=== PATIENT | male | born 1970 | race Caucasian/White ===

== ENCOUNTER → 2019-06-19 07:54 | Outpatient (CLI) | payer BC, SELFPAY | PROVIDERS: Family Provider Family Medicine; PCP Family Medicine; Referring Provider Physician Assistant; Visit Provider Physician Assistant | DX: R20.2 Paresthesia of skin (principal) ==

== ENCOUNTER 2021-05-10 08:04 | Day surgery (SDC) | payer BC, OTHER, SELFPAY ==
[2021-05-10] VITALS (7 sets, daily range): BP systolic 82–156; BP diastolic 61–79; PULSE 60–74; RESP 18; TEMP 36.5–37.3; O2SAT 92–97; BMI 52.7
[2021-05-10] MEDS: Lactated Ringers 1,000 ML 100 ML IV (08:50)
--- NOTE | 2021-05-10 09:23 | RAD_ITS ---
PROCEDURE: Caudal block. DATE OF EXAMINATION: 05/10/2021 INDICATION: Male, 50 years old. Low back pain. FLUOROSCOPY TIME (if supplied): (19 seconds) minutes/seconds. Single image was submitted. RAD/Fluor Guidance for Spine Inj IMPRESSION: Intraoperative imaging provided for caudal block. Electronically Signed: Brady Cordova MD at 11:56 EDT , Service support ,
[2021-05-10] MEDS: Bupivacaine 0.25% 30 ML Vial (09:29)
[2021-05-10] MEDS: Lidocaine 1% (5 ml sdv) 5 ML Vial (09:29)
[2021-05-10] MEDS: MethylPREDNISolone Acetate 80 MG/ML Vial (09:29)
[2021-05-10] MEDS: 0.9% Normal Saline (Pres. free 10 ML Vial (09:30)
--- NOTE | 2021-05-10 13:26 | OP.PCM_ITS ---
Report of Operation Date of Procedure: 05/10/21 Pre-Operative Diagnosis: Lumbosacral radiculopathy, lumbosacral degenerative di sc disease, lumbosacral spinal stenosis Post-Operative Diagnosis: Lumbosacral radiculopathy, lumbosacral degenerative disc disease, lumbosacral spinal stenosis Surgery/Procedure Performed:: Caudal epidural steroid injection under fluoroscopic guidance Type of Anesthesia: MAC Estimated Blood Loss (mL): Minimal Description of Procedure: DESCRIPTION OF PROCEDURE: History and physical of today was reviewed. Risks and benefits of the procedure were explained. The patient understood and agreed to proceed. Informed consent was obtained. IV inserted per routine protocol. The patient was taken to the operating room and placed in the prone position with a pillow positioned underneath the abdomen. The lower back and tailbone area was prepped and draped in a sterile fashion using iodine x3. Under fluoroscopy guidance on a lateral view, the caudal space was identified. The skin and subcutaneous tissue was anesthetized with approximately 3 mL of 1% lidocaine using a 25-gauge regular needle. Under direct visualization with fluoroscopy, using a 22-gauge 3-1/2-inch spinal needle, the needle was advanced via the skin through the sacral hiatus. The tip of the needle was passed through the sacrococcygeal ligament and advanced to approximately S4 area. After negative aspiration of blood or CSF, a total of 3 mL of contrast was injected to confirm correct placement of the needle as well as cephalad spread. The spread was followed to approximately L5 area. After confirmation on AP as well as lateral view and repeated negative aspiration, a total of 15 mL of preservative-free 0.125% Marcaine with 80 mg of Depo-Medrol was injected easily. The needle was then removed intact. The patient experienced no sign or symptoms of intrathecal or intravascular injection. The patient experienced no paresthesia. The procedure was completed without any apparent difficulty or any complications. The patient appeared to tolerate it well. ASSESSMENT AND PLAN: This is a 50-year-old male with lumbosacral radiculopathy, lumbosacral degenerative disc disease, lumbosacral spinal stenosis status post caudal epidural steroid injection, patient will continue his current medications, patient will follow in approximately 2 weeks for reevaluation. Complications None
== END 2021-05-10 10:23 | disposition home or self-care (01) ==
LOC: SDC 08:09 → AC 08:11
PROVIDERS: PCP Family Medicine; Referring Provider Anesthesiology Pain Medicine; Visit Provider Anesthesiology Pain Medicine
PROC: 3E0S3BZ Introduction of Anesthetic Agent into Epidural Space, Percutaneous Approach (ICD-10-PCS; CPT 62282; principal; 2021-05-10 09:25)
DX: M47.27 Other spondylosis with radiculopathy, lumbosacral region (principal); M51.17 Intervertebral disc disorders with radiculopathy, lumbosacral region; M48.07 Spinal stenosis, lumbosacral region; G47.33 Obstructive sleep apnea (adult) (pediatric); H91.90 Unspecified hearing loss, unspecified ear; G25.81 Restless legs syndrome; M19.90 Unspecified osteoarthritis, unspecified site; Z87.891 Personal history of nicotine dependence
CPT/HCPCS: 01992; 62323; 64483; 77003; J7120; J3490

== ENCOUNTER 2021-06-28 11:02 | Day surgery (SDC) | payer BC, OTHER, SELFPAY ==
[2021-06-28 12:00] VITALS: BP 100/70; PULSE 70; RESP 16; TEMP 36.9; O2SAT 99; BMI 53.3
[2021-06-28] MEDS: Lactated Ringers 1,000 ML 100 ML IV (12:24)
--- NOTE | 2021-06-28 12:39 | RAD_ITS ---
PROCEDURE: Caudal block. DATE OF EXAMINATION: 06/28/2021. INDICATION: Male, 50 years old. Chronic low back pain. FLUOROSCOPY TIME (if supplied): (19 seconds) minutes/seconds. Single image was obtained. Performed to confirm the patient''s identity, the type of procedure, to be performed and the site of entry. RAD/Fluor Guidance for Spine Inj IMPRESSION: Intraoperative imaging provided for caudal block. Electronically Signed: Brady Cordova MD at 14:04 EDT , Service support ,
[2021-06-28] MEDS: 0.9% Normal Saline (Pres. free 10 ML Vial (12:50)
[2021-06-28] MEDS: MethylPREDNISolone Acetate 80 MG/ML Vial (12:50)
[2021-06-28] MEDS: Bupivacaine 0.25% 30 ML Vial (12:50)
[2021-06-28] MEDS: Lidocaine 1% (5 ml sdv) 5 ML Vial (12:50)
[2021-06-28 13:00] VITALS: BP 100/70; BP 129/85; PULSE 69; RESP 16; TEMP 36.4; O2SAT 96
--- NOTE | 2021-06-28 13:00 | OP.PCM_ITS ---
Report of Operation Date of Procedure: 06/28/21 Pre-Operative Diagnosis: Lumbosacral radiculopathy, lumbosacral degenerative di sc disease, lumbosacral spinal stenosis Post-Operative Diagnosis: Lumbosacral radiculopathy, lumbosacral degenerative disc disease, lumbosacral spinal stenosis Surgery/Procedure Performed:: Caudal epidural steroid injection under fluoroscopic guidance Type of Anesthesia: MAC Estimated Blood Loss (mL): Minimal Description of Procedure: DESCRIPTION OF PROCEDURE: History and physical of today was reviewed. Risks and benefits of the procedure were explained. The patient understood and agreed to proceed. Informed consent was obtained. IV inserted per routine protocol. The patient was taken to the operating room and placed in the prone position with a pillow positioned underneath the abdomen. The lower back and tailbone area was prepped and draped in a sterile fashion using iodine x3. Under fluoroscopy guidance on a lateral view, the caudal space was identified. The skin and subcutaneous tissue was anesthetized with approximately 3 mL of 1% lidocaine using a 25-gauge regular needle. Under direct visualization with fluoroscopy, using a 22-gauge 3-1/2-inch spinal needle, the needle was advanced via the skin through the sacral hiatus. The tip of the needle was passed through the sacrococcygeal ligament and advanced to approximately S4 area. After negative aspiration of blood or CSF, a total of 3 mL of contrast was injected to confirm correct placement of the needle as well as cephalad spread. The spread was followed to approximately L5 area. After confirmation on AP as well as lateral view and repeated negative aspiration, a total of 15 mL of preservative-free 0.125% Marcaine with 80 mg of Depo-Medrol was injected easily. The needle was then removed intact. The patient experienced no sign or symptoms of intrathecal or intravascular injection. The patient experienced no paresthesia. The procedure was completed without any apparent difficulty or any complications. The patient appeared to tolerate it well. ASSESSMENT AND PLAN: This is a 50-year-old male with lumbosacral radiculopathy, lumbosacral degenerative disc disease, lumbosacral spinal stenosis status post caudal epidural steroid injection, patient will continue his current medications, patient will follow in approximately 2 weeks for reevaluation. Complications None
[2021-06-28 13:05] VITALS: BP 100/70; BP 125/81; PULSE 66; RESP 16; O2SAT 95
[2021-06-28 13:10] VITALS: BP 100/70; BP 135/69; PULSE 67; RESP 16; O2SAT 96
[2021-06-28 13:15] VITALS: BP 100/70; BP 118/74; PULSE 66; RESP 16; TEMP 36.4; O2SAT 98
[2021-06-28 13:38] VITALS: BP 100/70
== END 2021-06-28 13:51 | disposition home or self-care (01) ==
LOC: SDC 11:03 → AC 11:35
PROVIDERS: PCP Family Medicine; Referring Provider Anesthesiology Pain Medicine; Visit Provider Anesthesiology Pain Medicine
PROC: 3E0S3BZ Introduction of Anesthetic Agent into Epidural Space, Percutaneous Approach (ICD-10-PCS; CPT 62282; principal; 2021-06-28 12:35)
DX: M47.27 Other spondylosis with radiculopathy, lumbosacral region (principal); M51.17 Intervertebral disc disorders with radiculopathy, lumbosacral region; M48.061 Spinal stenosis, lumbar region without neurogenic claudication; M48.07 Spinal stenosis, lumbosacral region; G89.29 Other chronic pain; I10 Essential (primary) hypertension; M19.90 Unspecified osteoarthritis, unspecified site; G47.33 Obstructive sleep apnea (adult) (pediatric); H91.90 Unspecified hearing loss, unspecified ear; G25.81 Restless legs syndrome; G43.909 Migraine, unspecified, not intractable, without status migrainosus; Z79.899 Other long term (current) drug therapy; Z87.891 Personal history of nicotine dependence
CPT/HCPCS: 01992; 62323; 64483; 77003; J7120; J3490

== ENCOUNTER 2021-11-29 10:11 | Day surgery (SDC) | payer BC, SELFPAY ==
[2021-11-29 10:38] VITALS: BP 141/73; PULSE 62; RESP 16; TEMP 36.6; O2SAT 99; BMI 53.1
[2021-11-29] MEDS: Lactated Ringers 1,000 ML 15 ML IV (10:43)
[2021-11-29] MEDS: Lidocaine 1% (5 ml sdv) 5 ML Vial (11:27)
[2021-11-29] MEDS: MethylPREDNISolone Acetate 80 MG/ML Vial (11:27)
[2021-11-29] MEDS: Bupivacaine 0.25% 30 ML Vial (11:27)
[2021-11-29] MEDS: 0.9% Normal Saline (Pres. free 10 ML Vial (11:27)
[2021-11-29 11:40] VITALS: BP 132/79; BP 141/73; PULSE 66; RESP 16; TEMP 37.1; O2SAT 92
--- NOTE | 2021-11-29 11:40 | RAD_ITS ---
PROCEDURE: Caudal block. DATE OF EXAMINATION: 11/29/2021. INDICATION: Male, 51 years old. Chronic low back pain. FLUOROSCOPY TIME (if supplied): (10.4 seconds) minutes/seconds. One image was submitted. RAD/Fluor Guidance for Spine Inj IMPRESSION: Intraoperative imaging provided for caudal block. Electronically Signed: Brady Cordova MD at 13:58 EST ,
[2021-11-29 11:45] VITALS: BP 139/82; BP 141/73; PULSE 65; RESP 16; O2SAT 91
[2021-11-29 11:50] VITALS: BP 127/76; BP 141/73; PULSE 64; RESP 16; O2SAT 96
[2021-11-29 11:52] VITALS: BP 127/67; BP 141/73; PULSE 62; RESP 16; TEMP 36.8; O2SAT 94
[2021-11-29 12:13] VITALS: BP 141/73
--- NOTE | 2021-11-29 15:16 | OP.PCM_ITS ---
Report of Operation Date of Procedure: 11/29/21 Pre-Operative Diagnosis: Lumbosacral radiculopathy, lumbosacral degenerative di sc disease, lumbosacral spinal stenosis Post-Operative Diagnosis: Lumbosacral radiculopathy, lumbosacral degenerative disc disease, lumbosacral spinal stenosis Surgery/Procedure Performed:: Caudal epidural steroid injection under fluoroscopic guidance Type of Anesthesia: MAC Estimated Blood Loss (mL): Minimal Description of Procedure: DESCRIPTION OF PROCEDURE: History and physical of today was reviewed. Risks and benefits of the procedure were explained. The patient understood and agreed to proceed. Informed consent was obtained. IV inserted per routine protocol. The patient was taken to the operating room and placed in the prone position with a pillow positioned underneath the abdomen. The lower back and tailbone area was prepped and draped in a sterile fashion using iodine x3. Under fluoroscopy guidance on a lateral view, the caudal space was identified. The skin and subcutaneous tissue was anesthetized with approximately 3 mL of 1% lidocaine using a 25-gauge regular needle. Under direct visualization with fluoroscopy, using a 22-gauge 3-1/2-inch spinal needle, the needle was advanced via the skin through the sacral hiatus. The tip of the needle was passed through the sacrococcygeal ligament and advanced to approximately S4 area. After negative aspiration of blood or CSF, a total of 3 mL of contrast was injected to confirm correct placement of the needle as well as cephalad spread. The spread was followed to approximately L5 area. After confirmation on AP as well as lateral view and repeated negative aspiration, a total of 15 mL of preservative-free 0.125% Marcaine with 80 mg of Depo-Medrol was injected easily. The needle was then removed intact. The patient experienced no sign or symptoms of intrathecal or intravascular injection. The patient experienced no paresthesia. The procedure was completed without any apparent difficulty or any complications. The patient appeared to tolerate it well. ASSESSMENT AND PLAN: This is a 51-year-old male with lumbosacral radiculopathy, lumbosacral degenerative disc disease, lumbosacral spinal stenosis status post caudal epidural steroid injection, patient will continue his current medications, patient will follow in approximately 2 weeks for reevaluation. Complications None
== END 2021-11-29 23:59 | disposition home or self-care (01) ==
LOC: SDC 10:15 → AC 10:16
PROVIDERS: PCP Family Medicine; Referring Provider Anesthesiology Pain Medicine; Visit Provider Anesthesiology Pain Medicine
PROC: 3E0S3BZ Introduction of Anesthetic Agent into Epidural Space, Percutaneous Approach (ICD-10-PCS; CPT 62282; principal; 2021-11-29 11:35)
DX: M47.27 Other spondylosis with radiculopathy, lumbosacral region (principal); Z68.43 Body mass index [BMI] 50.0-59.9, adult; M51.17 Intervertebral disc disorders with radiculopathy, lumbosacral region; M48.07 Spinal stenosis, lumbosacral region; Z86.16 Personal history of COVID-19; M19.90 Unspecified osteoarthritis, unspecified site; G47.33 Obstructive sleep apnea (adult) (pediatric); Z87.891 Personal history of nicotine dependence; I10 Essential (primary) hypertension; I25.2 Old myocardial infarction; G25.81 Restless legs syndrome; Z79.899 Other long term (current) drug therapy; G43.909 Migraine, unspecified, not intractable, without status migrainosus; E66.9 Obesity, unspecified
CPT/HCPCS: 62323; 01992; 64483; 77003; J7120; J3490

== ENCOUNTER 2022-05-09 08:40 | Day surgery (SDC) | payer BC, SELFPAY ==
[2022-05-09] VITALS (7 sets, daily range): BP systolic 109–151; BP diastolic 55–96; PULSE 58–69; RESP 16; TEMP 36.6–36.9; O2SAT 96–99; BMI 53.6
[2022-05-09] MEDS: Lactated Ringers 1,000 ML 15 ML IV (09:44)
--- NOTE | 2022-05-09 10:33 | RAD_ITS ---
PROCEDURE: Fluoroscopy guided caudal block. DATE OF EXAMINATION: 05/09/2022 INDICATION: Male, 51 years old presenting with low back pain. EXAMINATION/TECHNIQUE: IR Fluoro Guide Injection Spine COMPARISON: None. FLUOROSCOPY TIME: 0:05 minutes/seconds. FINDINGS: 2 spot fluoroscopic images were obtained intraoperatively. Lateral fluoroscopic images of the sacrum and coccyx were obtained, images demonstrate needle within the caudal space with contrast injection. No radiologist was present for the procedure, please refer to operative report for details. RAD/Fluor Guidance for Spine Inj IMPRESSION: Please refer to operative report for details. Electronically Signed: Dwayne Christina MD at 13:50 EDT ,
[2022-05-09] MEDS: MethylPREDNISolone Acetate 80 MG/ML Vial (10:35)
[2022-05-09] MEDS: Lidocaine 1% (5 ml sdv) 5 ML Vial (10:35)
[2022-05-09] MEDS: 0.9% Normal Saline (Pres. free 10 ML Vial (10:35)
[2022-05-09] MEDS: Bupivacaine 0.25% 30 ML Vial (10:35)
--- NOTE | 2022-05-09 11:04 | OP.PCM_ITS ---
Report of Operation Date of Procedure: 05/09/22 Pre-Operative Diagnosis: Lumbosacral radiculopathy, lumbosacral degenerative di sc disease, lumbosacral spinal stenosis Post-Operative Diagnosis: Lumbosacral radiculopathy, lumbosacral degenerative disc disease, lumbosacral spinal stenosis Surgery/Procedure Performed:: Caudal epidural steroid injection under fluoroscopic guidance Type of Anesthesia: MAC Estimated Blood Loss (mL): Minimal Description of Procedure: DESCRIPTION OF PROCEDURE: History and physical of today was reviewed. Risks and benefits of the procedure were explained. The patient understood and agreed to proceed. Informed consent was obtained. IV inserted per routine protocol. The patient was taken to the operating room and placed in the prone position with a pillow positioned underneath the abdomen. The lower back and tailbone area was prepped and draped in a sterile fashion using iodine x3. Under fluoroscopy guidance on a lateral view, the caudal space was identified. The skin and subcutaneous tissue was anesthetized with approximately 3 mL of 1% lidocaine using a 25-gauge regular needle. Under direct visualization with fluoroscopy, using a 22-gauge 3-1/2-inch spinal needle, the needle was advanced via the skin through the sacral hiatus. The tip of the needle was passed through the sacrococcygeal ligament and advanced to approximately S4 area. After negative aspiration of blood or CSF, a total of 3 mL of contrast was injected to confirm correct placement of the needle as well as cephalad spread. The spread was followed to approximately L5 area. After confirmation on AP as well as lateral view and repeated negative aspiration, a total of 15 mL of preservative-free 0.125% Marcaine with 80 mg of Depo-Medrol was injected easily. The needle was then removed intact. The patient experienced no sign or symptoms of intrathecal or intravascular injection. The patient experienced no paresthesia. The procedure was completed without any apparent difficulty or any complications. The patient appeared to tolerate it well. ASSESSMENT AND PLAN: This is a 51-year-old male with lumbosacral radiculopathy, lumbosacral degenerative disc disease, lumbosacral spinal stenosis status post caudal epidural steroid injection, patient will continue his current medications, patient will follow in approximately 2 weeks for reevaluation. Complications None
== END 2022-05-09 11:28 | disposition home or self-care (01) ==
LOC: SDC 08:43 → AC 08:51
PROVIDERS: PCP Family Medicine; Referring Provider Anesthesiology Pain Medicine; Visit Provider Anesthesiology Pain Medicine
PROC: 3E0S3BZ Introduction of Anesthetic Agent into Epidural Space, Percutaneous Approach (ICD-10-PCS; CPT 62282; principal; 2022-05-09 10:15)
DX: M51.17 Intervertebral disc disorders with radiculopathy, lumbosacral region (principal); M48.07 Spinal stenosis, lumbosacral region; I10 Essential (primary) hypertension; G25.81 Restless legs syndrome; G47.33 Obstructive sleep apnea (adult) (pediatric); Z79.899 Other long term (current) drug therapy; M19.90 Unspecified osteoarthritis, unspecified site
CPT/HCPCS: 62323; 64483; 77003; J7120; J3490

== ENCOUNTER 2022-12-26 09:57 | Day surgery (SDC) | payer OTHER, SELFPAY ==
[2022-12-26 10:25] VITALS: BP 137/79; PULSE 65; RESP 18; TEMP 36.7; O2SAT 99; BMI 53.1
[2022-12-26] MEDS: Lactated Ringers 1,000 ML 15 ML IV (10:50)
--- NOTE | 2022-12-26 10:50 | RAD_ITS ---
PROCEDURE: Caudal block. DATE OF EXAMINATION: December 26, 2022. INDICATION: Male, 52 years old. Low back pain. FLUOROSCOPY TIME (if supplied): (15.7 seconds) minutes/seconds. 2 images were submitted. RADIATION DOSAGE (If Supplied By Facility): ( 11.46 ) mGycm RAD/Fluor Guidance for Spine Inj IMPRESSION: Intraoperative imaging provided for caudal block. Electronically Signed: Brady Cordova MD at 13:41 EDT ,
[2022-12-26] MEDS: Bupivacaine 0.25% 30 ML Vial (11:25)
[2022-12-26] MEDS: Lidocaine 1% (5 ml sdv) 5 ML Vial (11:25)
[2022-12-26] MEDS: MethylPREDNISolone Acetate 80 MG/ML Vial (11:25)
[2022-12-26] MEDS: 0.9% Normal Saline (Pres. free 10 ML Vial (11:25)
[2022-12-26 11:34] VITALS: BP 137/79; BP 148/86; PULSE 65; RESP 20; TEMP 36.7; O2SAT 95
[2022-12-26 11:40] VITALS: BP 137/79; BP 148/86; PULSE 60; RESP 20; O2SAT 95
[2022-12-26 11:45] VITALS: BP 137/79; BP 86/56; PULSE 61; RESP 20; O2SAT 96
--- NOTE | 2022-12-26 11:47 | OP.PCM_ITS ---
Report of Operation Date of Procedure: 12/26/22 Pre-Operative Diagnosis: Lumbosacral radiculopathy, lumbosacral degenerative di sc disease, lumbosacral spinal stenosis Post-Operative Diagnosis: Lumbosacral radiculopathy, lumbosacral degenerative disc disease, lumbosacral spinal stenosis Surgery/Procedure Performed:: Caudal epidural steroid injection under fluoroscopic guidance Type of Anesthesia: MAC Estimated Blood Loss (mL): Minimal Description of Procedure: DESCRIPTION OF PROCEDURE: History and physical of today was reviewed. Risks and benefits of the procedure were explained. The patient understood and agreed to proceed. Informed consent was obtained. IV inserted per routine protocol. The patient was taken to the operating room and placed in the prone position with a pillow positioned underneath the abdomen. The lower back and tailbone area was prepped and draped in a sterile fashion using iodine x3. Under fluoroscopy guidance on a lateral view, the caudal space was identified. The skin and subcutaneous tissue was anesthetized with approximately 3 mL of 1% lidocaine using a 25-gauge regular needle. Under direct visualization with fluoroscopy, using a 22-gauge 3-1/2-inch spinal needle, the needle was advanced via the skin through the sacral hiatus. The tip of the needle was passed through the sacrococcygeal ligament and advanced to approximately S4 area. After negative aspiration of blood or CSF, a total of 3 mL of contrast was injected to confirm correct placement of the needle as well as cephalad spread. The spread was followed to approximately L5 area. After confirmation on AP as well as lateral view and repeated negative aspiration, a total of 15 mL of preservative-free 0.125% Marcaine with 80 mg of Depo-Medrol was injected easily. The needle was then removed intact. The patient experienced no sign or symptoms of intrathecal or intravascular injection. The patient experienced no paresthesia. The procedure was completed without any apparent difficulty or any complications. The patient appeared to tolerate it well. ASSESSMENT AND PLAN: This is a 52-year-old male with lumbosacral radiculopathy, lumbosacral degenerative disc disease, lumbosacral spinal stenosis status post caudal epidural steroid injection, patient will continue his current medications, patient will follow in approximately 2 weeks for reevaluation. Complications None
[2022-12-26 11:51] VITALS: BP 106/69; BP 137/79; PULSE 63; RESP 18; TEMP 36.9; O2SAT 96
[2022-12-26 12:04] VITALS: BP 137/79
== END 2022-12-26 12:29 | disposition home or self-care (01) ==
LOC: SDC 09:58 → AC 10:00
PROVIDERS: PCP Family Medicine; Visit Provider Anesthesiology Pain Medicine
PROC: 3E0S3BZ Introduction of Anesthetic Agent into Epidural Space, Percutaneous Approach (ICD-10-PCS; CPT 62282; principal; 2022-12-26 11:45)
DX: M48.07 Spinal stenosis, lumbosacral region (principal); M51.17 Intervertebral disc disorders with radiculopathy, lumbosacral region; I10 Essential (primary) hypertension; Z87.891 Personal history of nicotine dependence
CPT/HCPCS: 62323; 64483; 77003; J7120; J3490

== ENCOUNTER 2023-03-13 07:46 | Day surgery (SDC) | payer OTHER, SELFPAY ==
[2023-03-13] MEDS: Lactated Ringers 1,000 ML 15 ML IV (07:55)
[2023-03-13 08:03] VITALS: BP 146/75; PULSE 67; RESP 16; TEMP 37.1; O2SAT 98; BMI 54.3
--- NOTE | 2023-03-13 08:44 | RAD_ITS ---
PROCEDURE: The left L5-S1 transforaminal epidural injection. DATE OF EXAMINATION: March 13, 2023. INDICATION: Male, 52 years old. Low back pain. FLUOROSCOPY TIME (if supplied): (17 seconds) minutes/seconds. 3 images were submitted. 08.13 mGy RAD/Lumbar Spine 2 or 3 Views IMPRESSION: Intraoperative imaging provided for left L5-S1 transforaminal epidural injection. Electronically Signed: Brady Cordova MD at 14:48 EDT ,
--- NOTE | 2023-03-13 08:44 | PCM.OPRPT ---
Report of Operation Date of Procedure: 03/13/23 Description of Surgical Findings:: PREOPERATIVE DIAGNOSES: 1. Lumbosacral radiculopathy. 2. Lumbosacral degenerative disk disease. 3. Lumbosacral spinal stenosis. POSTOPERATIVE DIAGNOSES: 1. Lumbosacral radiculopathy. 2. Lumbosacral degenerative disk disease. 3. Lumbosacral spinal stenosis. PROCEDURE PERFORMED: left-sided lumbar transforaminal epidural steroid injection, L4-5, L5-S1. ANESTHESIA: MAC. BLOOD LOSS: Minimal. COMPLICATIONS: None. DESCRIPTION OF PROCEDURE: History and physical of today was reviewed. Risks and benefits of the procedure were explained. The patient understood and agreed to proceed. Informed consent was obtained. IV inserted per routine protocol. The patient was taken to the operating room and placed in the prone position with a pillow positioned underneath the abdomen. The left side of his lower back was prepped and draped in a sterile fashion using iodine x3. Under fluoroscopy guidance on oblique view, the L4 through S1 vertebral bodies were visualized. The skin and subcutaneous tissue was anesthetized with approximately 5 mL of 1% lidocaine using a 25-gauge regular needle. Under direct visualization with fluoroscopy at approximately 35-degree angle, starting on the left L4, ending on the left L5, using a 22-gauge 5-inch spinal needle, the needle was advanced via the skin. The tip of the needle was maneuvered and directed towards the inferior and medial gutter of the transverse process at the superiormost aspect of the neural foramen. Once the tip of the needle was at the vicinity of the foramen, after negative aspiration for blood or CSF, a total of 1 mL of contrast was injected in divided doses between both levels to confirm correct placement of the needle as well as medial spread. The confirmation was obtained on AP as well as lateral view. After repeated negative aspiration and confirmation on AP as well as lateral view, a total of 6 mL of preservative-free 0.25% Marcaine with 80 mg of Depo-Medrol was injected in divided doses between both levels. The needles were then removed intact. The patient experienced no sign or symptoms of intrathecal or intravascular injection. The patient experienced no paresthesia. The procedure was completed without any apparent difficulty or any complications. The patient appeared to tolerate it well. ASSESSMENT AND PLAN: This is a 52-year-old male with lumbosacral radiculopathy, lumbosacral degenerative disk disease, and lumbosacral spinal stenosis, status post left-sided lumbar transforaminal epidural steroid injection at L4-5, L5-S1. The patient will continue his current medications. The patient will follow up in approximately 2 weeks for reevaluation.
[2023-03-13] MEDS: Lidocaine 1% (5 ml sdv) 5 ML Vial (08:52)
[2023-03-13] MEDS: MethylPREDNISolone Acetate 80 MG/ML Vial (08:52)
[2023-03-13 09:02] VITALS: BP 146/71; BP 146/75; PULSE 64; RESP 16; TEMP 37.4; O2SAT 94
[2023-03-13 09:05] VITALS: BP 146/67; BP 146/75; PULSE 65; RESP 16; O2SAT 95
[2023-03-13 09:10] VITALS: BP 140/70; BP 146/75; PULSE 64; RESP 16; O2SAT 94
[2023-03-13 09:15] VITALS: BP 141/74; BP 146/75; PULSE 63; RESP 16; O2SAT 92
[2023-03-13 09:18] VITALS: BP 113/87; BP 146/75; PULSE 65; RESP 16; TEMP 37.1; O2SAT 94
== END 2023-03-13 10:01 | disposition home or self-care (01) ==
LOC: SDC 07:47 → AC 07:48
PROVIDERS: PCP Family Medicine; Referring Provider Anesthesiology Pain Medicine; Visit Provider Anesthesiology Pain Medicine
PROC: 3E0S3BZ Introduction of Anesthetic Agent into Epidural Space, Percutaneous Approach (ICD-10-PCS; CPT 64484; principal; 2023-03-13 09:15)
DX: M48.07 Spinal stenosis, lumbosacral region (principal); M51.17 Intervertebral disc disorders with radiculopathy, lumbosacral region; I10 Essential (primary) hypertension; G47.33 Obstructive sleep apnea (adult) (pediatric); Z87.891 Personal history of nicotine dependence; Z99.89 Dependence on other enabling machines and devices
CPT/HCPCS: 64484; 64483; 72100; J7120

== ENCOUNTER 2023-12-11 08:41 | Day surgery (SDC) | payer OTHER, SELFPAY ==
[2023-12-11 09:02] VITALS: BP 151/78; PULSE 68; RESP 20; TEMP 36.4; O2SAT 97; BMI 52.2
--- NOTE | 2023-12-11 09:10 | RAD_ITS ---
INDICATION: TRANSFORAMINAL EPIDURAL INJECTION L3,L4,L5, LEFT EXAMINATION/TECHNIQUE: X-RAY - XR Spine Lumbar 2 or 3 Views COMPARISON: No relevant prior comparison study available FINDINGS: 2 views of the lower lumbar spine were obtained on a C-arm for epidural injection. The exam was performed for documentation and not for diagnostic purposes. The radiation dose is 10.87 mGy The fluoroscopy time was 16 seconds. RAD/Lumbar Spine 2 or 3 Views IMPRESSION: Intraprocedural exam as described above. Electronically Signed: Flakito Anna MD at 15:18 EST ,
[2023-12-11] MEDS: Lactated Ringers 1,000 ML 15 ML IV (09:13)
[2023-12-11] MEDS: MethylPREDNISolone Acetate 80 MG/ML Vial (09:50)
[2023-12-11] MEDS: Lidocaine 1% (5 ml sdv) 5 ML Vial (09:50)
--- NOTE | 2023-12-11 09:58 | OP.PCM_ITS ---
Report of Operation Date of Procedure: 12/11/23 Description of Surgical Findings:: PREOPERATIVE DIAGNOSES: 1. Lumbosacral radiculopathy. 2. Lumbosacral degenerative disk disease. 3. Lumbosacral spinal stenosis. POSTOPERATIVE DIAGNOSES: 1. Lumbosacral radiculopathy. 2. Lumbosacral degenerative disk disease. 3. Lumbosacral spinal stenosis. PROCEDURE PERFORMED: Left-sided lumbar transforaminal epidural steroid injection, L3-4 and L4-5. ANESTHESIA: MAC. BLOOD LOSS: Minimal. COMPLICATIONS: None. DESCRIPTION OF PROCEDURE: History and physical of today was reviewed. Risks and benefits of the procedure were explained. The patient understood and agreed to proceed. Informed consent was obtained. IV inserted per routine protocol. The patient was taken to the operating room and placed in the prone position with a pillow positioned underneath the abdomen. The left side of his lower back was prepped and draped in a sterile fashion using iodine x3. Under fluoroscopy guidance on oblique view, the L3 through L5 vertebral bodies were visualized. The skin and subcutaneous tissue was anesthetized with approximately 5 mL of 1% lidocaine using a 25-gauge regular needle. Under direct visualization with fluoroscopy at approximately 35-degree angle, starting on the left L3, ending on the left L4, using a 22-gauge 5-inch spinal needle, the needle was advanced via the skin. The tip of the needle was maneuvered and directed towards the inferior and medial gutter of the transverse process at the superiormost aspect of the neural foramen. Once the tip of the needle was at the vicinity of the foramen, after negative aspiration for blood or CSF, a total of 1 mL of contrast was injected in divided doses between both levels to confirm correct placement of the needle as well as medial spread. The confirmation was obtained on AP as well as lateral view. After repeated negative aspiration and confirmation on AP as well as lateral view, a total of 6 mL of preservative-free 0.25% Marcaine with 80 mg of Depo-Medrol was injected in divided doses between both levels. The needles were then removed intact. The patient experienced no sign or symptoms of intrathecal or intravascular injection. The patient experienced no paresthesia. The procedure was completed without any apparent difficulty or any complications. The patient appeared to tolerate it well. ASSESSMENT AND PLAN: This is a 53-year-old male with lumbosacral radiculopathy, lumbosacral degenerative disk disease, and lumbosacral spinal stenosis, status post left-sided lumbar transforaminal epidural steroid injection at L3-4 and L4- 5. The patient will continue his current medications. The patient will follow up in approximately 2 weeks for reevaluation.
[2023-12-11 10:00] VITALS: BP 128/76; BP 151/78; PULSE 62; RESP 16; TEMP 36.3; O2SAT 94
[2023-12-11 10:05] VITALS: BP 128/77; BP 151/78; PULSE 62; RESP 16; O2SAT 95
[2023-12-11 10:10] VITALS: BP 118/77; BP 151/78; PULSE 61; RESP 16; O2SAT 95
[2023-12-11 10:16] VITALS: BP 107/63; BP 151/78; PULSE 62; RESP 16; TEMP 36.4; O2SAT 95
[2023-12-11 10:29] VITALS: BP 151/78
== END 2023-12-11 10:52 | disposition home or self-care (01) ==
LOC: SDC 08:43 → AC 08:46
PROVIDERS: PCP Family Medicine; Visit Provider Anesthesiology Pain Medicine
PROC: 3E0S3BZ Introduction of Anesthetic Agent into Epidural Space, Percutaneous Approach (ICD-10-PCS; principal; 2023-12-11 10:05)
DX: M48.07 Spinal stenosis, lumbosacral region (principal); M51.17 Intervertebral disc disorders with radiculopathy, lumbosacral region; I10 Essential (primary) hypertension; Z87.891 Personal history of nicotine dependence
CPT/HCPCS: 64483; 72100; J7120

== ENCOUNTER 2024-05-13 07:38 | Day surgery (SDC) | payer BC, SELFPAY ==
[2024-05-13] VITALS (8 sets, daily range): BP systolic 124–148; BP diastolic 75–92; PULSE 62–69; RESP 16–18; TEMP 36.3–37.3; O2SAT 94–100; BMI 54.6
[2024-05-13] MEDS: Lactated Ringers 1,000 ML 15 ML IV (08:14)
--- NOTE | 2024-05-13 08:25 | RAD_ITS ---
PROCEDURE: Caudal block. DATE OF EXAMINATION: May 13, 2024. INDICATION: Male, 53 years old. Low back pain. FLUOROSCOPY TIME (if supplied): (9 seconds) minutes/seconds. 14.75 mGy. 2 images were submitted. RAD/Fluor Guidance for Spine Inj IMPRESSION: Intraoperative imaging provided for caudal block. Electronically Signed: Brady Cordova MD at 15:33 EDT ,
--- NOTE | 2024-05-13 08:35 | PRE.ANES_ITS ---
ASA Classification* ASA Classification ASA Classification: 3 Assessment & Plan Anesthesia* Anesthesia Assessment Anesthesia Assessment: Discussed sedation and/or anesthesia options, risks, benefits, and alternatives with patient/parents/legal guardian/POA. Questions invited. The patient/parents/legal guardian/POA seems to understand and agrees to proceed with anesthesia plan. Reviewed the physical assessment, medical history, allergy history and patient home medications list prior to surgery/procedure/anesthetic and documented any changes. Performed airway and anesthesia risk assessments. 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 When Was Last Pacemaker Check QUESTION #4 FULL TEXT: You/Your Family Experience fever (hyperthermia) with Anesthesia Last Oral Intake Last Oral intake: Last Oral Intake NPO since 20:00 05/13/24 08:15 Meds taken in AM with sips of No 05/13/24 08:15 water? Meds patient instructed to take am of surgery PONV PONV - photographic machine operator: PONV - photographic machine operator Female HX of Motion Sickness HX of N/V After Surgery Non-Smoker Duration of Surgery greater than 60 minutes Number of Risk Factors PONV Score Height & Weight Height & Weight: Anesthesia: Height & Weight Height 5 ft 8 in 05/13/24 08:15 Weight: 162.8 kg 05/13/24 08:15 Body Mass Index (BMI) 54.6 05/13/24 08:15 Respiratory Assessment Respiratory Assessment - photographic machine operator: Respiratory Tract Infection Hx - photographic machine operator Hx Respiratory Tract Infection No 05/04/22 08:27 STOP Sleep Apnea STOP Sleep Apnea - photographic machine operator: STOP Sleep Apnea - photographic machine operator Hx Hypertension Yes: controlled with med 05/04/22 08:27 Hx Sleep Apnea Yes 12/11/23 10:16 CPAP Yes 12/11/23 10:00 BIPAP No 05/04/22 08:27 Do you snore loudly (louder than talking or can be heard Do you often feel tired/ fatigued/ sleepy during daytime? Has anyone observed you stop breathing during sleep? STOP Results QUESTION #5 FULL TEXT : Do you snore loudly (louder than talking or can be heard through closed doors)? Tobacco Use History Tobacco Use History - photographic machine operator: Tobacco Use History - photographic machine operator Tobacco Use Smoking Status Former smoker 05/04/22 08:27 Hx Tobacco Use No 05/04/22 08:27 Years Smoking Packs Smoked per Day Smoking Cessation Date was within the last 15 years Hx Smoking Cessation Date 10/09/16 05/04/22 08:27 Hx Smoking Cessation No 05/04/22 08:27 Counseling Hematologic Medial History Hematologic Hx - photographic machine operator: Hematologic Medical Hx - rn documentation Hx of Blood Transfusion Hx of Transfusion in last 3 Months Date of Last Transfusion (if within last 3 months) Ever experience any problems with transfusion(s)? Specify any problems Hx of Preganancy in last 3 Months Nurse Filling Out Transfusion & Questions: Date: Time: Patient unable to answer at this time (ie. confused, unrespo /Reproduction History /Reproductive History - photographic machine operator: /Reproductive Hx- photographic machine operator Hx Now Gestational Age (in weeks): EDC: Hx Hx Para Hx Section SAB No 05/04/22 08:27 Active Medications Active Medications: Current Medications Generic Name Dose Route Start Last Admin Trade Name Freq PRN Reason Stop Dose Admin Lactated Ringer's 1,000 mls @ 15 mls/hr 05/13/24 08:00 05/13/24 08:14 IV 15 mls/hr .Q48H СВЕТЛАНА Administration PFSH Medical History Loss of hearing Alcohol use Arthritis Restless legs Back pain Migraine headache Former smoker CPAP (continuous positive airway pressure) dependence Leg cramps History of pain when walking History of edema Hypertension Home Medications ?Medication ?Instructions ?Recorded ?Last Taken ?Type acetaminophen 325 mg tablet 650 mg PO Q4H PRN Pain 05/04/21 12/10/23 History (Tylenol) vit 1 tab PO DAILY 05/04/21 12/10/23 History [id number]-[id number]-[id number] 500 mg-50 mg-25 mg-40 mg tablet (Bioflex) diclofenac sodium 75 mg 75 mg PO BID 06/28/21 12/10/23 History tablet,delayed release furosemide 20 mg tablet 20 mg PO DAILY 06/28/21 12/10/23 History gabapentin 300 mg tablet 300 mg PO .qid 06/28/21 12/10/23 History lisinopril 10 mg tablet 10 mg PO DAILY 06/28/21 12/10/23 History Allergy/AdvReac Type Severity Reaction Status Date / Time mushroom Allergy Swelling Verified 05/13/24 08:11 Penicillins Allergy Swelling Verified 05/13/24 08:11 Surgical History Hx of surgical procedure Hx of hemorrhoidectomy Social History Smoking Status: Former smoker Review of Systems (Anesthesia) ROS Narrative System reviewed and no additional complaints, except as documented.
--- NOTE | 2024-05-13 09:24 | OP.PCM_ITS ---
Report of Operation Date of Procedure: 05/13/24 Pre-Operative Diagnosis: Lumbosacral radiculopathy, lumbosacral degenerative di sc disease, lumbosacral spinal stenosis Post-Operative Diagnosis: Lumbosacral radiculopathy, lumbosacral degenerative disc disease, lumbosacral spinal stenosis Surgery/Procedure Performed:: Diagnostic/therapeutic caudal epidural steroid injection under fluoroscopic guidance Type of Anesthesia: MAC Estimated Blood Loss (mL): Minimal Description of Procedure: DESCRIPTION OF PROCEDURE: History and physical of today was reviewed. Risks and benefits of the procedure were explained. The patient understood and agreed to proceed. Informed consent was obtained. IV inserted per routine protocol. The patient was taken to the operating room and placed in the prone position with a pillow positioned underneath the abdomen. The lower back and tailbone area was prepped and draped in a sterile fashion using iodine x3. Under fluoroscopy guidance on a lateral view, the caudal space was identified. The skin and subcutaneous tissue was anesthetized with approximately 3 mL of 1% lidocaine using a 25-gauge regular needle. Under direct visualization with fluoroscopy, using a 22-gauge 3-1/2-inch spinal needle, the needle was advanced via the skin through the sacral hiatus. The tip of the needle was passed through the sacrococcygeal ligament and advanced to approximately S4 area. After negative aspiration of blood or CSF, a total of 3 mL of contrast was injected to confirm correct placement of the needle as well as cephalad spread. The spread was followed to approximately L5 area. After confirmation on AP as well as lateral view and repeated negative aspiration, a total of 15 mL of preservative-free 0.125% Marcaine with 80 mg of Depo-Medrol was injected easily. The needle was then removed intact. The patient experienced no sign or symptoms of intrathecal or intravascular injection. The patient experienced no paresthesia. The procedure was completed without any apparent difficulty or any complications. The patient appeared to tolerate it well. ASSESSMENT AND PLAN: This is a 53-year-old male with lumbosacral radiculopathy, lumbosacral degenerative disc disease, lumbosacral spinal stenosis status post diagnostic/therapeutic caudal epidural steroid injection, patient will continue his current medications, patient will follow in approximately 2 weeks for reevaluation. Complications None
--- NOTE | 2024-05-13 09:27 | PCM.POST.ANE ---
Anesthesia: Postop Eval I Current Vital Signs Temperature: 97.3 F Pulse Rate: 66 Blood Pressure: 135/79 Respiratory Rate: 16 Pulse Ox: 100 Oxygen Delivery Method: Room Air Assessment Airway patent: Yes Spontaneous unlabored respirations: Yes Mental status: Awake and Calm nausea: No Vomiting: No Anesthesia Complication: No Fluid Hydration Crystalloid volume administer (ml): 200 Total IV fluid infused: 200 Progress Note Anesthesia document: Postop Eval 1 completed: Yes
--- NOTE | 2024-05-13 09:39 | POSTOPAN2_ITS ---
Anesthesia Postop Eval I Sum Postop Eval Completion status Anesthesia document: Postop Eval 1 completed: Yes Anesthesia Postop Eval I Summary Anesthesia Postop Eval I Summary: Anesthesia Postop Eval I: Assessment Summary Airway patent Yes 05/13/24 09:29 CALENDER ROLL PRESS OPERATOR.TRENTOBFazal Spontaneous unlabored Yes 05/13/24 09:29 CALENDER ROLL PRESS OPERATOR.CAESAR respirations Mental status Awake,Calm 05/13/24 09:29 CALENDER ROLL PRESS OPERATOR.CAESAR nausea No 05/13/24 09:29 CALENDER ROLL PRESS OPERATOR.CAESAR Vomiting No 05/13/24 09:29 CALENDER ROLL PRESS OPERATOR.CAESAR Anesthesia Postop Eval I: Fluid Summary Crystalloid volume administer 200 05/13/24 09:29 CALENDER ROLL PRESS OPERATOR.TRENTOBY (ml) Colloids volume administered ( ml) Blood Product volume administered (ml) Total IV fluid infused 200 05/13/24 09:29 CALENDER ROLL PRESS OPERATOR.CAESAR Anesthesia Postop Eval I: Summary Notes Anesthesia Complication No 05/13/24 09:29 CALENDER ROLL PRESS OPERATOR.CAESAR Anesthesia Complication Comment: Post-operative progress note Anesthesia: Postop Eval II Evaluation Mental status: Awake Pain Level: 0 nausea: No Vomiting: No
--- NOTE | 2024-05-13 09:39 | PCM.POSTANE2 ---
Anesthesia Postop Eval I Sum Postop Eval Completion status Anesthesia document: Postop Eval 1 completed: Yes Anesthesia Postop Eval I Summary Anesthesia Postop Eval I Summary: Anesthesia Postop Eval I: Assessment Summary Airway patent Yes 05/13/24 09:29 INFORMATION SYSTEMS SECURITY DEVELOPER.TRENTOBFazal Spontaneous unlabored Yes 05/13/24 09:29 INFORMATION SYSTEMS SECURITY DEVELOPER.CAESAR respirations Mental status Awake,Calm 05/13/24 09:29 INFORMATION SYSTEMS SECURITY DEVELOPER.CAESAR nausea No 05/13/24 09:29 INFORMATION SYSTEMS SECURITY DEVELOPER.CAESAR Vomiting No 05/13/24 09:29 INFORMATION SYSTEMS SECURITY DEVELOPER.CAESAR Anesthesia Postop Eval I: Fluid Summary Crystalloid volume administer 200 05/13/24 09:29 INFORMATION SYSTEMS SECURITY DEVELOPER.TRENTOBY (ml) Colloids volume administered ( ml) Blood Product volume administered (ml) Total IV fluid infused 200 05/13/24 09:29 INFORMATION SYSTEMS SECURITY DEVELOPER.CAESAR Anesthesia Postop Eval I: Summary Notes Anesthesia Complication No 05/13/24 09:29 INFORMATION SYSTEMS SECURITY DEVELOPER.CAESAR Anesthesia Complication Comment: Post-operative progress note Anesthesia: Postop Eval II Evaluation Mental status: Awake Pain Level: 0 nausea: No Vomiting: No
== END 2024-05-13 10:16 | disposition home or self-care (01) ==
LOC: SDC 07:42 → AC 07:42
PROVIDERS: PCP Family Medicine; Referring Provider Anesthesiology Pain Medicine; Visit Provider Anesthesiology Pain Medicine
PROC: 3E0S3BZ Introduction of Anesthetic Agent into Epidural Space, Percutaneous Approach (ICD-10-PCS; CPT 62282; principal; 2024-05-13 09:20)
DX: M51.17 Intervertebral disc disorders with radiculopathy, lumbosacral region (principal); Z68.43 Body mass index [BMI] 50.0-59.9, adult; M48.07 Spinal stenosis, lumbosacral region; G47.33 Obstructive sleep apnea (adult) (pediatric); E66.3 Overweight; I10 Essential (primary) hypertension; Z79.899 Other long term (current) drug therapy; Z86.16 Personal history of COVID-19; Z87.891 Personal history of nicotine dependence
CPT/HCPCS: 62323; 01992; 64483; 77003; J7120; J3490